=== PATIENT | female | born 1940 | race Caucasian/White ===

== ENCOUNTER 2017-03-15 19:49 | Emergency (ER) | payer OTHER, MEDICARE ==
[~2017-03-15] VITALS: Ht 167.6 cm; Wt 91.2 kg
[~2017-03-15 19:49] MED LIST: AMLODIPINE BESY10 MG PO; ASPIR-LOW81 MG PO; ASPIRIN81 M2 PO; ATORVASTATIN CA10 MG PO; BUTALB-ACETAMI1 EAC2 PO; BUTALB-APAP-CA1 EACH PO; DIOVAN HCT 31 TABLE1 PO; LIPITOR40 MG PO; TOPROL XL25 MG PO; TYLENOL EXTRA500 MG PO
[2017-03-15 20:30] LABS: HEMATOCRIT 41.7 % (36.0-46.0); MCH 30.8 PG (29.0-34.0); MCHC 33.6 G/DL (30.0-36.0); MCV 91.9 FL (83-99); PLATELET COUNT 221 K/uL (156-360); RBC DIS.WIDTH-CV 12.6 % (11.8-14.6); RBC DIS.WIDTH-SD 42.3 % (39-53); RED BLOOD COUNT 4.54 M/uL (3.80-5.20)
[2017-03-15 20:40] LABS: CHLORIDE 106 mEq/L (99-109); POTASSIUM 3.4 mEq/L (3.7-5.4); SODIUM 143 mEq/L (136-147)
[2017-03-15 20:42] LABS: GLUCOSE 115 mg/dL (70-99)
[2017-03-15 20:43] LABS: ANION GAP 11 MEQ/L (2-14)
[2017-03-15 20:46] LABS: GFR ESTIMATE (CALCULATED) 52 mL/min/
[2017-03-15 20:47] LABS: UREA NITROGEN (BUN) 24 mg/dL (9-23)
[2017-03-15 21:32] VITALS: BP 122/77
== END 2017-03-15 21:33 | disposition home or self-care (01) ==
LOC: EXP 19:49 → EME 19:49 → EXP 21:33
PROVIDERS: Physician Assistant
DX: I10 Essential (primary) hypertension (principal); M54.9 Dorsalgia, unspecified; I69.311 Memory deficit following cerebral infarction; I69.398 Other sequelae of cerebral infarction; E78.00 Pure hypercholesterolemia, unspecified; Z79.82 Long term (current) use of aspirin; Z87.891 Personal history of nicotine dependence
CPT/HCPCS: 80048; 85027; 93005; 99281; 99284